=== PATIENT | female | born 2000 | race Two or more races ===

== ENCOUNTER 2023-08-08 10:42 | Emergency (ER) | payer OTHER ==
[2023-08-08 11:18] VITALS: BMI 20.6
[2023-08-08] MEDS ORDERED: ACETAMINOPHEN 1000 MG/100 ML BAG IVPB ONE (13:48)
[2023-08-08] MEDS ORDERED: VANCOMYCIN 1,000 MG in DEXTROSE 5%-WATER - 250 ML IVPB ONE (13:49)
[2023-08-08] MEDS ORDERED: MEROPENEM 1 GM in DEXTROSE 5%-WATER 100 ML IVPB ONE (13:52)
[2023-08-08] MEDS ORDERED: ACETAMINOPHEN INJECTION 100 ML IVPB ONE (14:14)
[2023-08-08 14:22] LABS: BASO % 0.8 % (0-2.0); EOS % 0.3 % (0-4.5); HEMATOCRIT 37.8 % (32.4-45.2); HEMOGLOBIN 12.7 GM/dL (10.7-15.3); MCH 30.7 pg (25.7-33.7); MCHC 33.5 g/dl (32.0-36.0); MEAN CELL VOLUME 91.8 fl (80-96); MEAN PLT VOLUME 6.8 fl (7.5-11.1); MONO % 3.7 % (3.8-10.2); NEUT % 68.2 % (42.8-82.8); PLATELET COUNT 382 10^3/uL (134-434); RBC 4.12 M/mm3 (3.60-5.2); RDW 13.4 % (11.6-15.6); WHITE BLOOD COUNT 12.3 K/mm3 (4.0-10.0)
[2023-08-08 14:27] LABS: VENOUS BASE EXCESS 1.2 mmol/L (-2-2); VENOUS O2 SATURATION 95.3 % (70-80); VENOUS PCO2 37.9 mmHg (38-52); VENOUS PH 7.439 (7.310-7.410)
[2023-08-08 14:29] LABS: INR 1.03 (0.83-1.09)
[2023-08-08 14:31] LABS: ACTIVATED PTT 33.4 SECONDS (25.2-36.5)
[2023-08-08 14:43] LABS: CHLORIDE 104 mmol/L (98-107); POTASSIUM 4.6 mmol/L (3.5-5.1); SODIUM 137 mmol/L (136-145)
[2023-08-08] MEDS ORDERED: MEROPENEM 1 GM VIAL (RESTRICTED TO ID) IVPB ONE (14:44)
[2023-08-08 14:45] LABS: CALCIUM 8.5 mg/dL (8.5-10.1); GLUCOSE,RANDOM 87 mg/dL (74-106)
[2023-08-08 14:46] LABS: ALBUMIN 3.2 g/dl (3.4-5.0); ANION GAP 7 mmol/L (4-13); BLOOD UREA NITROGEN 8.6 mg/dL (7-18); CO2 26 mmol/L (21-32)
[2023-08-08 14:47] LABS: URINE APPEARANCE TURBID; URINE BILIRUBIN NEGATIVE (NEGATIVE); URINE COLOR YELLOW; URINE GLUCOSE (UA) NEGATIVE (NEGATIVE); URINE KETONE NEGATIVE (NEGATIVE); URINE LEUK ESTERASE NEGATIVE (NEGATIVE); URINE NITRITE NEGATIVE (NEGATIVE); URINE PROTEIN NEGATIVE (NEGATIVE); URINE UROBILINOGEN 0.2 mg/dL (0.2-1.0)
[2023-08-08 14:48] LABS: SGPT/ALT 51 U/L (13-61)
[2023-08-08 14:49] LABS: CREATININE 0.6 mg/dL (0.55-1.3); SGOT/AST 42 U/L (15-37)
[2023-08-08 14:50] LABS: BILIRUBIN,TOTAL 0.3 mg/dL (0.2-1); TOT PROT 7.9 g/dl (6.4-8.2)
[2023-08-08 14:51] LABS: ALK PHOS 70 U/L (45-117)
[2023-08-08] MEDS ORDERED: VANCOMYCIN 1 GRAM (PRE-DOCKED) 1,000 MG/250 ML BAG IVPB ONE (16:09)
[2023-08-08] MEDS ORDERED: LACOSAMIDE 100 MG TABLET PO ONE ×2 (20:30→21:23)
[2023-08-08] MEDS ORDERED: DEXAMETHASONE 4 MG TABLET (FP) GT ONE (20:30)
[2023-08-08] MEDS ORDERED: FAMOTIDINE 20 MG TABLET PEG ONE (20:30)
[2023-08-08] MEDS ORDERED: FAMOTIDINE 20 MG TABLET ONE (20:45)
[2023-08-08] MEDS ORDERED: DEXAMETHASONE 4 MG TABLET (FP) ONE (20:45)
[2023-08-08] MEDS ORDERED: LACOSAMIDE 50 MG TABLET PO ONE ×2 (20:59→21:00)
[2023-08-08] MEDS ORDERED: Lacosamide 50 MG/5 ML ORAL SOLUTION UNIT CUPS GT ONE (21:24)
[2023-08-08] MEDS ORDERED: clonazePAM 2 MG TABLET GT ONE (22:30)
[2023-08-08] MEDS ORDERED: levETIRAcetam 500 MG/5 ML ORAL SOLUTION (UNIT-DOSE CUPS) GT ONE (22:30)
[2023-08-08] MEDS ORDERED: HYDROCORTISONE 5 MG TABLET PO ONE (22:30)
[2023-08-08] MEDS ORDERED: clonazePAM 2 MG TABLET ONE (22:55)
[2023-08-09 02:05] VITALS: BP 103/66; PULSE 76; RESP 18; TEMP 97.5
== END 2023-08-09 03:40 | disposition home or self-care (01) ==
LOC: JER 10:42
PROC: 3E03329 Introduction of Other Anti-infective into Peripheral Vein, Percutaneous Approach (ICD-10-PCS; principal; 2023-08-08)
PROC: 3E03329 Introduction of Other Anti-infective into Peripheral Vein, Percutaneous Approach (ICD-10-PCS; 2023-08-08)
PROC: 3E033NZ Introduction of Analgesics, Hypnotics, Sedatives into Peripheral Vein, Percutaneous Approach (ICD-10-PCS; 2023-08-08)
PROC: 0T9B70Z Drainage of Bladder with Drainage Device, Via Natural or Artificial Opening (ICD-10-PCS; 2023-08-08)
PROC: 0DH60UZ Insertion of Feeding Device into Stomach, Open Approach (ICD-10-PCS; 2023-08-08)
DX: K94.23 Gastrostomy malfunction (principal); R56.9 Unspecified convulsions; G93.9 Disorder of brain, unspecified; Z20.822 Contact with and (suspected) exposure to COVID-19
CPT/HCPCS: 0241U-QW; 36415; 49450; 71045-TC-FY; 80053; 81003; 82550; 82553; 82803; 83605; 84484; 84703; 85025; 85610; 85730; 87040; 87086; 93005; 93010; 99285-25